=== PATIENT | female | born 1965 | race Caucasian/White ===

== ENCOUNTER → 2016-10-26 | Outpatient (CLI) | payer OTHER ==
[~2016-10-26] MED LIST: LISI-519 PO
--- NOTE | 2016-10-26 15:13 | RADRPT ---
EXAM DATE/TIME: 10/26/2016 14:16 [place] COMPARISON: No previous studies available for comparison. INDICATIONS : Palpable mass. MEDICAL HISTORY : Grave's disease. mitral valve prolapse. SURGICAL HISTORY : None. ENCOUNTER: Initial ACUITY: >1 year PAIN SCORE: 0/10 LOCATION: Bilateral neck MEASUREMENTS: RIGHT LOBE: 7.3 x 2.3 x 1.8 cm LEFT LOBE: 6.0 x 2.2 x 1.4 cm FINDINGS: RIGHT LOBE: Homogeneous echotexture without nodules or cysts. Vascularity is within normal limits. LEFT LOBE: 3 mm tiny cystic nodule medial aspect of the left mid thyroid. Upper pole hypoechoic 6 x 6 x 4 mm ai id left thyroid mass. 5 mm lower pole solid hypoechoic mass. 4 x 10 x 3 mm cystic mass lower pole lef t thyroid lobe laterally. 4.3 x 3.1 mm solid hypoechoic left thyroid mass seen at the midpole mediall y. ISTHMUS: Normal in size without focal abnormality. CONCLUSION: 1. Multiple thyroid nodules are noted as above. Afshin Holland MD on October 26, 2016 at 15:10 Board Certified Radiologist. This report was verified electronically.
== END ==
LOC: HRAD 13:57
PROVIDERS: ATTEND Internal Medicine Geriatric Medicine
DX: E05.90 Thyrotoxicosis, unspecified without thyrotoxic crisis or storm (principal)
CPT/HCPCS: 76536

== ENCOUNTER → 2017-01-18 | Outpatient (CLI) | payer OTHER ==
[~2017-01-18] VITALS: Ht 175.3 cm; Wt 80.6 kg
[~2017-01-18] MED LIST changes: +CHLORHEXIDINE GLUCONATE 2 % 1 PACK (2 CLOTHS) TOPICAL PRN; +INSULIN HUMAN REGULAR 1,000 UNITS/10 ML VIAL SQ PRN; +LACTATED RINGER'S 1000 ML IV PRN; +METOPROLOL TARTRATE 25 MG TAB PO PRN; +POVIDONE IODINE 5% (ANTISEPSIS KIT) 4 APPLICATIONS EACH NARE PRN; +PROPOFOL 200 MG/20 ML AMP IV ONE; +SODIUM CHLORID 0.9% 500 ML IV PRN
[2017-01-18 09:33] VITALS: BP 126/80; PULSE 85; RESP 18; TEMP 98.1; O2SAT 96
--- NOTE | 2017-01-18 10:42 | EKG ---
Date Performed: 01/18/2017 Time Performed: 09:10:12 PTAGE: 51 years EKG: Sinus rhythm NORMAL ECG NO PREVIOUS TRACING DOCTOR: Padilla Daniel Interpretating Date/Time 01/18/2017 10:41:29
[2017-01-18 12:15] VITALS: BP 113/68; PULSE 98; RESP 16; O2SAT 98
--- NOTE | 2017-01-18 13:33 | MR ---
cc: ARCHIE DONOVAN DATE OF 1965 DATE OF SERVICE 01/18/2017 INDICATION FOR PROCEDURE: Average risk colorectal cancer screening. PHOTOGRAPHS AND BIOPSIES: Photographs and biopsies were obtained. PREMEDICATIONS: Administered by Anesthesiology. MONITORING: Monitoring was accomplished with pulse oximeter, EKG and blood pressure monitor. PROCEDURE NOTE: After informed consent was obtained and the procedure, risks and benefits were explained, including the risks of bleeding, sepsis, perforation, risks of anesthesia, risk of missing lesions, the video colonoscope was inserted into the rectum. The scope was advanced along the left colon. Some scattered diverticulosis was noted. Tortuosity was also noted in the left colon and transverse colon. With abdominal pressure the scope was advanced to the cecal position. There was some liquefied stool throughout the colon; this was suctioned out as best possible examining the colonic mucosa which appeared to be normal throughout. The cecum, ascending colon and transverse colon did not reveal any space occupying lesions. Once again the patient did have some liquefied stool which was suctioned as best possible. It is possible that small/tiny lesions could be missed because of the residual stool. Once again diverticulosis was noted scattered in the left colon, also diverticulosis noted in the right colon as well. In the sigmoid colon one diminutive polyp was found; this was biopsied off and removed. The scope was retroflexed in the rectum and tiny hemorrhoids were noted in the rectal vault. There was no active bleeding noted. The patient tolerated the procedure well. She was sent to the recovery room in stable condition. IMPRESSION: 1. Diverticular disease. The right and left colon had mild diverticulosis. 2. Some retained liquefied stool suctioned out for the most part as best possible. 3. Diminutive polyp in the sigmoid colon biopsied off and removed. 4. Tiny hemorrhoids in the anorectal junction without any active bleeding. PLAN: 1. Follow up biopsies taken today. If this is a hyperplastic polyp that was removed, recommend repeat colonoscopy in 10 years. Would suggest yearly hemoccult as well. If this is an adenomatous polyp, recommend repeat colonoscopy in 5 years otherwise. 2. Recommend high fiber diet. We will discuss with the patient. ArchieMD ELE Wyatt/CLARITA /12:05 PM /1:27 PM
== END ==
LOC: HEND 08:51
PROVIDERS: ATTEND Internal Medicine Gastroenterology
DX: Z12.11 Encounter for screening for malignant neoplasm of colon (principal); K57.90 Diverticulosis of intestine, part unspecified, without perforation or abscess without bleeding; D12.5 Benign neoplasm of sigmoid colon; K64.8 Other hemorrhoids; Z01.810 Encounter for preprocedural cardiovascular examination
CPT/HCPCS: 00810; 45380; 88305; 93005; J7120